=== PATIENT | female | born 1955 | race Caucasian/White ===

== ENCOUNTER 2017-12-05 10:40 | Outpatient (CLI) | payer BC | END 2017-12-05 10:41 | disposition home or self-care (01) | LOC: BICMAMMO 10:40 | PROVIDERS: ATTEND Obstetrics & Gynecology | DX: Z12.31 Encounter for screening mammogram for malignant neoplasm of breast (principal) | CPT/HCPCS: 77063; 77067 ==

== ENCOUNTER 2019-03-07 05:40 | Day surgery (SDC) | payer MEDICARE ==
[2019-02-28 15:11] VITALS: BMI 29.7
[2019-03-07] MEDS ORDERED: Fentanyl 100 MCG/2 ML VIAL ONE (06:06)
[2019-03-07] MEDS ORDERED: HYDROmorphone 0.5 MG/0.5 ML SYRINGE ONE (06:06)
[2019-03-07] MEDS ORDERED: Lidocaine 2% Jelly 5 ML TUBE ONE (06:06)
[2019-03-07] MEDS ORDERED: Midazolam HCl 2 mg/2 ml Vial ONE (06:06)
[2019-03-07] MEDS ORDERED: Thrombin 5000 UNITS/5 ML VIAL ONE (06:36)
--- NOTE | 2019-03-07 08:23 | OP ---
DATE OF PROCEDURE: 03/07/2019 HEAT AND FROST INSULATOR: Jorge Lilly PA-C INDICATION: Pain. DIAGNOSIS: Cervical radiculopathy. PROCEDURE PERFORMED: Anterior cervical diskectomy and fusion at C5-C6. ANESTHESIA: General. DESCRIPTION OF PROCEDURE: The patient was brought into the operating room and placed under general anesthesia. She was placed on table in a supine position. A transverse incision was planned over the lateral aspect of the neck on the right. After prepping and draping and after an appropriate operative pause, the incision was created. The underlying platysma muscle was identified and incised. A blunt tissue plane anterior to the sternocleidomastoid muscle was used to gain access to the prevertebral space. Self-retaining retractor was placed. C-arm images obtained to confirm the appropriate level. An annulotomy was then performed at the C5-C6 disk space. All disk material as well as anterior and posterior osteophytes were removed. After decompressing that segment, a 6-mm lordotic PEEK cage packed with allograft and autograft material was placed within the interbody space. An anterior cervical plate was then fashioned to the front of spine and secured with a total of 4 fixed screws. Midline and lateral structures were inspected and found to be free from significant trauma. The wound was irrigated. Hemostasis was maintained throughout. The wound was then closed in anatomic layers and a pressure dressing was applied. There were no known procedural complications. Job ID: [id number]
== END 2019-03-07 11:23 | disposition home or self-care (01) ==
LOC: SDC 05:40
PROVIDERS: ATTEND Neurological Surgery
PROC: 0RG10A0 Fusion of Cervical Vertebral Joint with Interbody Fusion Device, Anterior Approach, Anterior Column, Open Approach (ICD-10-PCS; principal; 2019-03-07)
PROC: 0RT30ZZ Resection of Cervical Vertebral Disc, Open Approach (ICD-10-PCS; 2019-03-07)
DX: M54.12 Radiculopathy, cervical region (principal); R25.1 Tremor, unspecified; Z79.899 Other long term (current) drug therapy; Z88.0 Allergy status to penicillin; Z88.5 Allergy status to narcotic agent; Z88.8 Allergy status to other drugs, medicaments and biological substances; Z91.018 Allergy to other foods
CPT/HCPCS: 76000; C1713; C1776; J0690; J1170; J2250; J3010

== ENCOUNTER 2019-04-04 21:52 | Observation (INO) | payer MEDICARE ==
[2019-04-04] MEDS ORDERED: Acetaminophen 500 MG TAB ONE (22:55)
[2019-04-04 23:00] LABS: Hemoglobin 14.8 g/dL (12.0-16.0); Mean Corpuscular HGB CONC 34.1 g/dL (32.0-36.0); Mean Corpuscular Hemoglobin 31.5 pg (27.0-31.0); Mean Corpuscular Volume 92.5 fL (78.0-98.0); Mean Platelet Volume 8.1 fL (7.4-10.4); Platelet Count 205 thou/uL (130-400); Red Blood Cell (RBC) Count 4.71 mill/uL (4.20-5.40); White Blood Cell (WBC) Count 20.4 thou/uL (4.8-10.8)
[2019-04-04 23:14] LABS: ALT (SGPT) 18 U/L (8-55); AST (SGOT) 18 U/L (5-34); Albumin 3.9 g/dL (3.4-4.8); Alkaline Phosphatase 83 U/L (40-110); Anion Gap 12 mmol/L (10-20); BUN (Urea Nitrogen) 12 mg/dL (9.8-20.1); Bilirubin, Total 0.7 mg/dL (0.2-1.2); Calc. Creatinine Clearance 0 mL/min (70-130); Carbon Dioxide 23 mmol/L (23-31); Chloride 105 mmol/L (98-107); Estimated GFR-MDRD 70; Globulin 2.9 g/dL (2.4-3.5); Glucose 145 mg/dL (80-115); Potassium 3.6 mmol/L (3.5-5.1); Protein, Total 6.8 g/dL (6.0-8.3); Sodium 136 mmol/L (136-145)
--- NOTE | 2019-04-04 23:17 | RAD ---
EXAM: Chest one view: HISTORY: Chest pain COMPARISON: 09/07/2014 FINDINGS: Lower cervical spine anterior cervical fusion changes. Heart size: Within normal limits. Lungs: Clear of acute process. No evidence for confluent pneumonia, pleural effusion, acute edema, or pneumothorax, or other signifi cant acute process. IMPRESSION: No significant acute intrathoracic disease. Atherosclerosis of the aorta. Stable exam.
[2019-04-04 23:22] LABS: Band 17 % (5-11); Lymphocytes 9 % (21-51); MDiff Complete? YES; Monocytes 6 % (0-10); Neutrophil 68 % (42-75); Platelet Morphology Comment Appears Adequate
[2019-04-04] MEDS ORDERED: Piperacillin/Tazobactam 4.5 GM VIAL ONE (23:57)
[2019-04-04] MEDS ORDERED: Metoclopramide HCl 10 MG/2 ML VIAL ONE (23:57)
[2019-04-05 01:05] LABS: Bilirubin Negative (Negative); Blood, Urine Negative (Negative); Clarity Clear (Clear); Glucose, Urine (Dipstick) Normal (Negative); Leukocyte Negative Leu/uL (Negative); Nitrite Negative (Negative); Protein, Urine (Dipstick) Negative (Neg-Trace); Urobilinogen Normal mg/dL (Less than 2)
[2019-04-05 03:39] VITALS: BMI 30.2
[2019-04-05] MEDS ORDERED: Ondansetron ODT 4 MG TAB PO PRN (03:42)
[2019-04-05] MEDS ORDERED: hydrALAZINE 20 MG/ML VIAL SLOW IVP PRN (03:42)
[2019-04-05] MEDS ORDERED: Acetaminophen 500 MG TAB PO PRN (03:42)
[2019-04-05] MEDS ORDERED: Ondansetron PF 4 MG/2 ML Vial IVP PRN (03:42)
[2019-04-05] MEDS ORDERED: Ibuprofen 200 MG TAB PO PRN (03:48)
--- NOTE | 2019-04-05 04:58 | HP ---
PRIMARY CARE PROVIDER: Dr. Leonardo Seth. CHIEF COMPLAINT: Fever, weakness and headache. HISTORY OF PRESENT ILLNESS: This is a 63-year-old female, who presented to [facility] Emergency Department complaining of less than 12 hour history of fever, chills, body aches with associated headache that began approximately 1500 p.m. on 04/04/2019. The patient states she had a temperature up to 102 degrees Fahrenheit, but denied any exposure history. Family members with similar symptoms, travel history, or recent vaccinations. The patient denied any cough, shortness of breath, change to bowel habits, or dysuria. The patient denied any nausea or vomiting. The patient does admit to some headache and neck pain after undergoing a recent cervical spine fusion approximately 4 weeks prior to this evaluation. The patient states she has had regular followup after her surgery, but denied any neck swelling, difficulty swallowing food or poor oral intake. The patient denied any unilateral weakness, visual disturbance, epistaxis, or ear drainage. In the emergency room, the patient underwent general evaluation including portable chest x-ray, which showed no focal infiltrate. Screening metabolic survey was essentially unremarkable except for elevated white blood cell count with a 17% bandemia. The patient received IV Zosyn, Reglan, in addition to intravenous normal saline and Tylenol. PAST MEDICAL HISTORY: 1. Hyperlipidemia. 2. Seasonal allergies. 3. Left upper extremity resting tremor. PAST SURGICAL HISTORY: 1. Status post cervical spine fusion. 2. Status post cardiac catheterization. 3. Status post cholecystectomy. 4. Status post hysterectomy. PAST PSYCHIATRIC HISTORY: Anxiety/depression. CURRENT MEDICATIONS: 1. Aripiprazole 20 mg p.o. at bedtime. 2. Estradiol 0.5 mg p.o. b.i.d. 3. Ibuprofen 200 mg p.o. q.6 hours p.r.n. pain. 4. Effexor XR 225 mg p.o. daily. ALLERGIES: 1. AMOXICILLIN. 2. ASPARTAME. 3. CHLORPHENIRAMINE. 4. DARVON. 5. PROPOXYPHENE. 6. VICODIN. FAMILY HISTORY: Positive for hypertension and pancreatic cancer. SOCIAL HISTORY: Resides in [place], [place]. . No current alcohol, tobacco, or illicit drug use. Functional of all activities of daily living. REVIEW OF SYSTEMS: CONSTITUTIONAL: Negative for weight loss or gain, ability to conduct usual activities. SKIN: Negative for rash, itching. EYES: Negative for double vision, pain. ENT/MOUTH: Negative for nose bleeding, neck stiffness, pain, tenderness. CARDIOVASCULAR: Negative for palpitations, dyspnea on exertion, orthopnea. RESPIRATORY: Negative for shortness of breath, wheezing, cough, hemoptysis, fever or night sweats. GASTROINTESTINAL: Negative for poor appetite, abdominal pain, heartburn, nausea, vomiting, constipation, or diarrhea. GENITOURINARY: Negative for urgency, frequency, dysuria, nocturia. MUSCULOSKELETAL: Negative for pain, swelling. NEUROLOGIC/PSYCHIATRIC: Negative for anxiety, depression. ALLERGY/IMMUNOLOGIC: Negative for skin rash, bleeding tendency. Otherwise negative except as stated per HPI. PHYSICAL EXAMINATION: VITAL SIGNS: On admission, blood pressure 126/63, pulse 91, respiratory rate 16, temperature 97.9 degrees Fahrenheit, O2 saturation 96% on room air. GENERAL APPEARANCE: This is a 63-year-old female, alert and oriented x3, pleasant, responsive, in no acute distress. HEENT: Pupils are equal, round, reactive to light and accommodation. Extraocular muscles are intact. No scleral icterus. No conjunctival injection. Nares patent. OP is clear. Teeth in fair repair. NECK: Supple. Mild tenderness to palpation in the paravertebral musculature of cervical spine. No unilateral edema or discoloration. No fluctuance. Cervical spine with full active and passive range of motion. CHEST: Lungs are clear to auscultation bilaterally. CARDIOVASCULAR: S1, S2 without noted murmur, rub, or gallop. ABDOMEN: Obese, soft, nontender, and nondistended. Bowel sounds are positive in all 4 quadrants. There is no hepatosplenomegaly. No abdominal bruits, no rebound or guarding appreciated. EXTREMITIES: Warm and dry with fair turgor. No clubbing, cyanosis, or asymmetric edema appreciated. Pulses palpable distally at the dorsalis pedis, posterior tibial, and popliteal arteries bilaterally. Capillary refill less than 2 seconds. NEUROLOGIC: Resting tremor noted in the left upper extremity. No other gross focal neurologic deficits appreciated. Cranial nerves 2 through 12 are grossly intact. PERTINENT LABORATORY AND X-RAY FINDINGS: Basic metabolic profile within normal limits. Lactic acid level 1.5, calcium 9.0, LFTs within normal limits. Troponin I negative x1. CBC showed a white blood cell count of 20.4, hemoglobin 14.8, hematocrit 44, platelet count 205 with 68% neutrophils, 17% bands. Urinalysis negative. IMAGIN. Portable chest x-ray dated 04/04/2019, showed no acute cardiopulmonary process. 2. EKG dated 04/04/2019, by my interpretation shows sinus tachycardia with heart rates in the low 100s. Normal R-wave progression noted in the precordial leads. Left axis deviation noted. No acute ST-T wave changes appreciated. ASSESSMENT/PLAN: 1. Systemic inflammatory response syndrome, exact etiology unclear. No focal infectious process. Check CT of the cervical spine given recent cervical spinal fusion. Hold antibiotic therapy and monitor clinical response. 2. Resting tremor, chronic. Continue supportive management. 3. Febrile episode. Continue to monitor as outlined in #1. No focal infectious process identified. 4. Anxiety/depression. Continue home regimen of Effexor and Aripiprazole. 5. Prophylaxis. SCDs while in bed. Pepcid 20 mg p.o. b.i.d. CODE STATUS: Full. Surrogate medical decision maker is patient's spouse. Job ID: [id number]
[2019-04-05 07:20] LABS: Hemoglobin 14.1 g/dL (12.0-16.0); Mean Corpuscular HGB CONC 33.8 g/dL (32.0-36.0); Mean Corpuscular Hemoglobin 31.6 pg (27.0-31.0); Mean Corpuscular Volume 93.3 fL (78.0-98.0); Mean Platelet Volume 7.7 fL (7.4-10.4); Platelet Count 188 thou/uL (130-400); RBC Distribution Width 11.1 % (11.5-14.5); Red Blood Cell (RBC) Count 4.46 mill/uL (4.20-5.40); White Blood Cell (WBC) Count 15.6 thou/uL (4.8-10.8)
[2019-04-05 07:39] LABS: Band 2 % (5-11); Lymphocytes 16 % (21-51); MDiff Complete? YES; Monocytes 7 % (0-10); Neutrophil 72 % (42-75); RBC Morphology Normal; Reactive Lymphocytes 3 % (0-10)
[2019-04-05 07:40] LABS: Anion Gap 11 mmol/L (10-20); BUN (Urea Nitrogen) 11 mg/dL (9.8-20.1); Calc. Creatinine Clearance 103 mL/min (70-130); Calcium 8.4 mg/dL (7.8-10.44); Carbon Dioxide 22 mmol/L (23-31); Chloride 110 mmol/L (98-107); Estimated GFR-MDRD 78; Glucose 108 mg/dL (80-115); Potassium 3.6 mmol/L (3.5-5.1); Sodium 139 mmol/L (136-145)
[2019-04-05] MEDS ORDERED: Estradiol 1 MG TAB PO SCH (09:00)
[2019-04-05] MEDS ORDERED: Famotidine 20 MG TAB PO SCH (09:00)
[2019-04-05] MEDS ORDERED: Venlafaxine HCl XR 75 MG CAP PO SCH (09:00)
--- NOTE | 2019-04-05 09:07 | MRI ---
MRI cervical spine without contrast: 04/05/2019 COMPARISON: 01/08/2019 HISTORY: Neck pain, fever, cervical fusion performed March 07, 2019 TECHNIQUE: The planar multisequence MR imaging of the cervical spine is provided without contrast FINDINGS: Anterior discectomy and fusion hardware is present at C5-6, new when compared to the prior examination. The sagittal STIR imaging demonstrates no focal area of osseous marrow edema. There is straightening of the normal cervical lordosis. There is a small area of retropharyngeal fluid anterior to the C3 and C4 vertebral bodies which 3.0 c m in craniocaudal dimension and approximately 3-4 mm in AP dimension. No osseous marrow edema noted on STIR imaging. C5 and C6 vertebral bodies are difficult to accurately assess with respect to bone m arrow signal intensity secondary to artifact from hardware. Marked adenoid enlargement. [place] tonsils are prominent as well. Evaluation is somewhat limited without contrast media. C2-3: No significant central canal or neural foraminal stenosis. C3-4: No central canal or neural foraminal stenosis C4-5: No central canal or neural foraminal stenosis C5-6: Slightly limited on the basis of hardware artifact. No significant central canal stenosis. Prob able mild right neural foraminal stenosis on the basis of uncovertebral osteophyte formation. C6-7: There is disc space narrowing and disc desiccation with mild disc bulge partially effacing the ventral thecal sac and causing mild central canal stenosis. There is moderate right and mild left neural foraminal stenosis. C7-T1: No significant central canal or neural foraminal stenosis. No focal area of abnormal signal intensity identified within the cervical cord. Epidural space appear s grossly unremarkable. IMPRESSION: Nonspecific small volume retropharyngeal fluid with lymphoid hyperplasia involving the ad enoids and palatine tonsils. Question possible pharyngitis. The degree of this fluid could be on the basis of manipulation during prior cervical spine surgery. Clinical correlation is essential. No significant central canal or neural foraminal stenosis within the cervical spine. Follow-up imaging of the cervical spine with and without contrast is advised if symptoms persist despite treatment.
[2019-04-05 12:43] VITALS: TEMP 98.4
--- NOTE | 2019-04-05 16:03 | PDOC.HOSPP ---
- Subjective Encounter Date: 04/05/19 Encounter Time: 16:02 Subjective: Ms. Bo was seen today in follow-up of fever, and sepsis syndrome. She says she feels better today. She notes a little sore throat a few days ago. - Objective Vital Signs & Weight: Vital Signs (12 hours) Temp Pulse Resp BP Pulse Ox 04/05/19 12:00 98.4 F 92 20 159/96 H 97 04/05/19 08:00 98.2 F 89 18 146/68 H 97 Weight Weight 192 lb 14.4 oz I&O: 04/04/19 04/05/19 04/06/19 06:59 06:59 06:59 Intake Total 240 Balance 240 Result Diagrams: 04/05/19 07:12 04/05/19 07:12 Hospitalist ROS - Medication Medications: Active Medications Generic Name Dose Route Start Last Admin Trade Name Freq PRN Reason Stop Dose Admin Acetaminophen 1,000 mg 04/05/19 03:42 04/05/19 12:30 Tylenol PO 1,000 mg Q6H PRN Administration Mild Pain (1-3) Estradiol 0.5 mg 04/05/19 09:00 04/05/19 09:59 Estrace PO 0.5 mg BID EWELINA Administration Famotidine 20 mg 04/05/19 09:00 04/05/19 10:00 Pepcid PO 20 mg BID EWELINA Administration Venlafaxine HCl 225 mg 04/05/19 09:00 04/05/19 10:00 Effexor Xr PO 225 mg DAILY EWELINA Administration - Exam Eye: PERRL ENT: normocephalic atraumatic, no oropharyngeal lesions Heart: RRR, no murmur, no gallops, no rubs, normal peripheral pulses Respiratory: CTAB, no wheezes, no rales, no ronchi, normal chest expansion, no tachypnea, normal percussion Extremities: no cyanosis, no clubbing, no edema Hosp A/P (1) Sepsis syndrome Code(s): [id number] - Status: Acute (2) Hyperlipidemia Code(s): E78.5 - HYPERLIPIDEMIA, UNSPECIFIED Status: Chronic - Plan * Sepsis syndrome- ? etiology- C Spine MRI noted * She may have mild pharyngitis- due to the elevated WBC count I feel it is reasonable to send her home on oral antibiotics * Stable for discharge home
[2019-04-05 16:50] VITALS: BP 148/70
[2019-04-05] MEDS ORDERED: FLU VACC TS2019-20(65YR UP)/PF 180 MCG/0.5 ML SYRINGE IM ONE (21:00)
[2019-04-05] MEDS ORDERED: Aripiprazole 10 MG TAB PO SCH (21:00)
--- NOTE | 2019-04-06 13:25 | DIS ---
DATE OF ADMISSION: 04/05/2019 DATE OF DISCHARGE: 04/05/2019 PRIMARY CARE PHYSICIAN: Dr. Leonardo Seth. DISCHARGE DISPOSITION: Home. DISCHARGE DIAGNOSES: 1. Sepsis syndrome. 2. Probable pharyngitis. 3. Hyperlipidemia. 4. Resting tremor of the left upper extremity. 5. Cervical spine degenerative joint disease. DISCHARGE MEDICATIONS: 1. Clindamycin 300 mg p.o. q.6 hours for 7 days. 2. Effexor 225 mg p.o. daily. 3. Advil 200 mg q.6 as needed. 4. Estradiol 0.5 mg p.o. twice daily. 5. Aripiprazole mg at bedtime. PROCEDURES DONE DURING THE ADMISSION: The patient had an MRI of the cervical spine showing some nonspecific small volume retroperitoneal fluid with some lymphoid hyperplasia involving the adenoids and the palatine tonsil, possible pharyngitis. The patient also had a chest x-ray, which was negative. CODE STATUS: Full code. ALLERGIES: 1. AMOXICILLIN. 2. ASPARTAME. 3. CLAVULANIC ACID. 4. TUSSIONEX. 5. CHLORPHENIRAMINE. 6. PROPOXYPHENE. 7. HYDROCODONE. HOSPITAL COURSE: Ms. Bo is a pleasant 63-year-old female, who was admitted to the hospital after she developed severe fever and generally not feeling well. She did have some sore throat as well. She says that the fever had her feeling so bad that she was afraid to go to sleep. She thought something really terrible could happen. For this reason, she came to the ER for evaluation. There the initial workup showed an elevated white blood cell count and for this reason, she was placed in observation. A CT scan of the cervical spine was done due to recent C-spine surgery. This was negative for any type of epidural abscess, but did show some evidence of pharyngitis. For this reason, she will be discharged on clindamycin. She was instructed to take a probiotic and instructed that if she has return of fever, worsening sore throat or severe neck pain to return back to the ER. Job ID: [id number]
== END 2019-04-05 17:38 | disposition home or self-care (01) ==
LOC: ERS 21:52 → ONC 04-05 01:52
PROVIDERS: ADMIT Family Medicine; ATTEND Family Medicine
DX: A41.9 Sepsis, unspecified organism (principal); J02.9 Acute pharyngitis, unspecified; E78.5 Hyperlipidemia, unspecified; G25.2 Other specified forms of tremor; M47.812 Spondylosis without myelopathy or radiculopathy, cervical region; R51 Headache; J30.2 Other seasonal allergic rhinitis; F41.9 Anxiety disorder, unspecified; F32.9 Major depressive disorder, single episode, unspecified; Z79.899 Other long term (current) drug therapy; Z88.0 Allergy status to penicillin; Z88.5 Allergy status to narcotic agent; Z88.8 Allergy status to other drugs, medicaments and biological substances; Z98.1 Arthrodesis status
CPT/HCPCS: 71045; 72141; 80048; 80053; 81003; 83605; 84484; 85007; 85025; 85027; 87040; 87804 ×2; 93005; G0378 ×2; 36415; 96361; 96365; 96367; J2543; J2765

== ENCOUNTER 2019-06-22 08:32 | Outpatient (CLI) | payer MEDICARE ==
--- NOTE | 2019-06-22 15:30 | NM ---
NUCLEAR MEDICINE [place] BRAIN SPECT: Date: 06/22/2019 HISTORY: 63-year-old female with Parkinson's disease. New onset bilateral upper extremity tremors in Summer 2018. TECHNIQUE: 130 mg SSKI administered PO 1 hour prior to administration of radiopharmaceutical. 4.5 mCi I-123 Ioflupane injected IV. SPECT of brain acquired in axial plane. FINDINGS: There is symmetrical bilateral uptake in bilateral globus pallidus and putamen. IMPRESSION: Normal scan. No evidence of Parkinsonism. POS: CET
== END 2019-06-22 08:33 | disposition home or self-care (01) ==
LOC: NM 08:32
PROVIDERS: ATTEND Psychiatry & Neurology Neurology
DX: G20 Parkinson's disease (principal)
CPT/HCPCS: 78803; A9584

== ENCOUNTER 2020-01-28 14:14 | Outpatient (CLI) | payer MEDICARE, OTHER ==
--- NOTE | 2020-01-28 14:51 | MMO ---
Left Breast MAMMO Unilat Diag DDI LT+VERNON. CLINICAL HISTORY: Patient is 64 years old and is seen for additional evaluation requested from prior study. The patient has no family history of breast cancer. The patient has no personal history of cancer. VIEWS: The views performed were: left craniocaudal spot compression with tomosynthesis and left mediolateral with tomosynthesis. FILMS COMPARED: The present examination has been compared to prior imaging studies performed at [facility] on 01/10/2020, and at [facility] on 12/05/2017. This study has been interpreted with the assistance of computer-aided detection. MAMMOGRAM FINDINGS: There are scattered fibroglandular densities. Finding 1: The questionable asymmetric density did not persist with the additional views. Finding 2: There are several stable nodules with circumscribed margins seen in the left breast. There are no suspicious masses, suspicious calcifications, or new areas of architectural distortion. IMPRESSION: THERE IS NO MAMMOGRAPHIC EVIDENCE OF MALIGNANCY. A ROUTINE FOLLOW-UP MAMMOGRAM IN 1 YEAR IS RECOMMENDED. THE RESULTS OF THIS EXAM WERE SENT TO THE PATIENT. ACR BI-RADS Category 2 - Benign finding MAMMOGRAPHY NOTE: 1. A negative mammogram report should not delay a biopsy if a dominant of clinically suspicious mass is present. 2. Approximately 10% to 15% of breast cancers are not detected by mammography. 3. Adenosis and dense breasts may obscure an underlying neoplasm. Reported by: RAFAELA FONG MD Electonically Signed: [id number]
== END 2020-01-28 14:15 | disposition home or self-care (01) ==
LOC: BICMAMMO 14:14
PROVIDERS: ATTEND Obstetrics & Gynecology
DX: R92.8 Other abnormal and inconclusive findings on diagnostic imaging of breast (principal)
CPT/HCPCS: 77065; G0279

== ENCOUNTER 2021-04-03 11:04 | Outpatient (CLI) | payer MEDICARE | END 2021-04-03 11:05 | disposition home or self-care (01) | LOC: BICMAMMO 11:04 | PROVIDERS: ATTEND Obstetrics & Gynecology | DX: Z12.31 Encounter for screening mammogram for malignant neoplasm of breast (principal) | CPT/HCPCS: 77063; 77067 ==

== ENCOUNTER 2022-11-23 12:47 | Outpatient (CLI) | payer MEDICARE | END 2022-11-23 12:48 | disposition home or self-care (01) | LOC: BICMAMMO 12:47 | PROVIDERS: ATTEND Family Medicine | DX: Z12.31 Encounter for screening mammogram for malignant neoplasm of breast (principal); Z80.3 Family history of malignant neoplasm of breast | CPT/HCPCS: 77063; 77067 ==

== ENCOUNTER 2023-07-24 12:52 | Observation (INO) | payer MEDICARE ==
[2023-07-24] MEDS ORDERED: LORazepam 2 MG/ML SYR.(CARPUJECT) ONE (13:09)
[2023-07-24] MEDS ORDERED: Aspirin Chewable 81 MG TAB ONE (13:09)
[2023-07-24] MEDS ORDERED: Nitroglycerin 2% Ointment 1 INCH/1 GM Packet ONE (13:11)
[2023-07-24 13:15] LABS: #Basophils 0.1 thou/uL (0.0-0.2); #Eosinphils 0.4 thou/uL (0.0-0.7); #Monocytes 0.6 thou/uL (0.11-0.59); %Basophils 0.5 % (0.0-1.0); %Eosinophils 4.2 % (0.0-10.0); %Lymphocytes 34.1 % (21.0-51.0); %Neutrophils 54.9 % (42.0-75.0); Hematocrit 45.8 % (36.0-47.0); Hemoglobin 15.7 g/dL (12.0-16.0); Mean Corpuscular HGB CONC 34.3 g/dL (32.0-36.0); Mean Corpuscular Hemoglobin 31.1 pg (27.0-31.0); Mean Corpuscular Volume 90.7 fl (78.0-98.0); Mean Platelet Volume 10.6 fL (7.4-10.4); Platelet Count 266 10x3/uL (130-400); RBC Distribution Width 12.5 % (11.5-14.5); Red Blood Cell (RBC) Count 5.05 mill/uL (4.20-5.40); White Blood Cell (WBC) Count 9.2 10x3/uL (4.8-10.8)
[2023-07-24 13:37] LABS: ALT (SGPT) 16 U/L (8-55); AST (SGOT) 18 U/L (5-34); Albumin 4.1 g/dL (3.4-4.8); Alkaline Phosphatase 109 U/L (40-110); Anion Gap 13 mmol/L (10-20); BUN (Urea Nitrogen) 17 mg/dL (9.8-20.1); Bilirubin, Total 0.7 mg/dL (0.2-1.2); Calc. Creatinine Clearance 0 mL/min (70-130); Calcium 9.4 mg/dL (7.8-10.44); Carbon Dioxide 23 mmol/L (23-31); Chloride 107 mmol/L (98-107); Estimated GFR 55; Globulin 3.2 g/dL (2.4-3.5); Glucose 129 mg/dL (80-115); Lipase 90 U/L (8-78); Potassium 3.8 mmol/L (3.5-5.1); Protein, Total 7.3 g/dL (5.8-8.1); Sodium 139 mmol/L (136-145)
[2023-07-24 13:40] LABS: Troponin I Less than 0.010 ng/mL (< 0.028)
[2023-07-24 15:42] VITALS: BMI 26.9
[2023-07-24] MEDS ORDERED: Nitroglycerin 0.4 MG TAB (25 Tab Bottle) SL PRN (15:47)
[2023-07-24] MEDS ORDERED: Ondansetron PF 4 MG/2 ML Vial IVP PRN (15:47)
[2023-07-24] MEDS ORDERED: Acetaminophen 650 MG Suppository PR PRN (15:47)
[2023-07-24] MEDS ORDERED: Ondansetron ODT 4 MG TAB PO PRN (15:47)
[2023-07-24] MEDS ORDERED: Electrolyte Replacement Protocol 1 EACH FS SCH (16:00)
[2023-07-24 16:34] LABS: Influenza A by NAA Not Detected (NotDetected); Influenza B by NAA Not Detected (NotDetected); SARS-CoV-2 NAA Rapid Test Not Detected (NotDetected)
[2023-07-24 16:55] LABS: Magnesium 2.1 mg/dL (1.6-2.6)
[2023-07-24 17:54] LABS: Troponin I 0.035 ng/mL (< 0.028)
[2023-07-25] MEDS ORDERED: Acetaminophen 325 MG TAB ONE (00:14)
[2023-07-25] MEDS: Acetaminophen 325 MG TAB PO PRN (00:18)
[2023-07-25] MEDS ORDERED: Nitroglycerin 0.4 MG TAB (25 Tab Bottle) ONE (00:24)
[2023-07-25] MEDS ORDERED: Morphine 4 MG/ML VIAL ONE (00:26)
[2023-07-25] MEDS: Morphine 4 MG/ML VIAL SLOW IVP SCH (00:35)
[2023-07-25 01:20] VITALS: TEMP 98.2
[2023-07-25 01:25] LABS: Troponin I Less than 0.010 ng/mL (< 0.028)
[2023-07-25 04:11] LABS: #Basophils 0.1 thou/uL (0.0-0.2); #Eosinphils 0.5 thou/uL (0.0-0.7); #Monocytes 0.8 thou/uL (0.11-0.59); #Neutrophils 5.3 thou/uL (1.40-6.50); %Basophils 0.5 % (0.0-1.0); %Eosinophils 4.6 % (0.0-10.0); %Lymphocytes 34.1 % (21.0-51.0); %Monocytes 7.5 % (0.0-10.0); Hematocrit 41.2 % (36.0-47.0); Hemoglobin 13.6 g/dL (12.0-16.0); Mean Corpuscular Hemoglobin 30.8 pg (27.0-31.0); Mean Corpuscular Volume 93.4 fl (78.0-98.0); Mean Platelet Volume 10.7 fL (7.4-10.4); Platelet Count 229 10x3/uL (130-400); RBC Distribution Width 12.6 % (11.5-14.5); Red Blood Cell (RBC) Count 4.41 mill/uL (4.20-5.40)
[2023-07-25 04:29] LABS: ALT (SGPT) 16 U/L (8-55); AST (SGOT) 23 U/L (5-34); Albumin 3.4 g/dL (3.4-4.8); Alkaline Phosphatase 95 U/L (40-110); Anion Gap 11 mmol/L (10-20); BUN (Urea Nitrogen) 19 mg/dL (9.8-20.1); Bilirubin, Total 0.6 mg/dL (0.2-1.2); Calc. Creatinine Clearance 57 mL/min (70-130); Calcium 8.8 mg/dL (7.8-10.44); Carbon Dioxide 26 mmol/L (23-31); Cardiac Risk 4.4 (Less than 4.5); Chloride 107 mmol/L (98-107); Cholesterol 171 mg/dl (< 200 Desired); Estimated GFR 52; Globulin 2.5 g/dL (2.4-3.5); Glucose 128 mg/dL (80-115); LDL Cholesterol, Calculated 112 mg/dL; Lipase 27 U/L (8-78); Potassium 4.5 mmol/L (3.5-5.1); Protein, Total 5.9 g/dL (5.8-8.1); Sodium 139 mmol/L (136-145); Triglycerides 99 mg/dL (Less than 150)
[2023-07-25 05:12] VITALS: BP 121/67
[2023-07-25 05:34] LABS: HDL Cholesterol 45 mg/dL (>60 Neg Risk)
[2023-07-25] MEDS ORDERED: Enoxaparin 40 MG (0.4 mL) SYRINGE ONE (10:06)
[2023-07-25] MEDS ORDERED: Aspirin Chewable 81 MG TAB ONE (10:06)
[2023-07-25] MEDS ORDERED: ADENOSINE 60 MG/20 ML SDV ONE (10:17)
[2023-07-25] MEDS: Aspirin Chewable 81 MG TAB PO SCH (12:35)
[2023-07-25] MEDS: Ezetimibe 10 MG TAB PO SCH (12:35)
[2023-07-25] MEDS: Calcitriol 0.25 MCG CAP PO SCH (12:35)
[2023-07-25] MEDS: Enoxaparin 40 MG (0.4 mL) SYRINGE SC SCH (12:36)
== END 2023-07-25 15:30 | disposition home or self-care (01) ==
LOC: ERS 12:52 → ERHOLD 14:41
PROVIDERS: ADMIT Family Medicine; ATTEND Emergency Medicine
DX: R07.89 Other chest pain (principal); Z88.0 Allergy status to penicillin; Z88.5 Allergy status to narcotic agent; Z79.899 Other long term (current) drug therapy; E78.5 Hyperlipidemia, unspecified; J30.2 Other seasonal allergic rhinitis; F41.9 Anxiety disorder, unspecified; F32.A Depression, unspecified; Z90.710 Acquired absence of both cervix and uterus; Z90.49 Acquired absence of other specified parts of digestive tract; Z98.890 Other specified postprocedural states; R74.8 Abnormal levels of other serum enzymes; Z79.82 Long term (current) use of aspirin
CPT/HCPCS: 0240U; 71045; 78452; 80053 ×2; 80061; 83690 ×2; 83735; 83880; 84484 ×3; 85025 ×2; 85379; 93005; 93017; 96372; 96375; A9502; G0378 ×2; J2060; 36415; J0153; J1650; J2270

== ENCOUNTER 2023-12-06 12:46 | Outpatient (CLI) | payer MEDICARE | END 2023-12-06 12:47 | disposition home or self-care (01) | LOC: BICMAMMO 12:46 | PROVIDERS: ATTEND Family Medicine | DX: Z12.31 Encounter for screening mammogram for malignant neoplasm of breast (principal); Z80.3 Family history of malignant neoplasm of breast | CPT/HCPCS: 77063; 77067 ==

== ENCOUNTER 2024-03-28 14:12 | Emergency (ER) | payer MEDICARE | END 2024-03-28 15:36 | disposition home or self-care (01) | LOC: ERS 14:12 | DX: U07.1 COVID-19 (principal) | CPT/HCPCS: 71046; 87428 ==